=== PATIENT | female | born 1955 | race Caucasian/White ===

== ENCOUNTER 2017-02-17 02:48 | Emergency (ER) | payer OTHER ==
--- NOTE | 2017-02-17 05:32 | ED NURSING NOTES ---
Clinical Report - Nurses [facility] [address] [place] [address] 02/17/2017 2:48 Patient: ALEX CALZADA TRIAGE Triage time 02:50. Acuity: LEVEL 3. Chief Complaint: (ETOH/medical eval). SD COMA SCORE: [place] Coma Scale: 14- eyes open spontaneously (4); best verbal response- disoriented (4); best motor response- obeys commands (6). --02:58 Renato Rueda R.N. 02:50 02/17/17. BP: 137/82. HR: 82. RR: 18. O2 saturation: 96% on room air. Temp: 97.6 F (axillary). Pain level now: 0/10. Additional comments: denies pain. --02:58 Renato Rueda R.N. Weight: 81.6 kg estimated. Height/Length: 66 inches Estimated. BMI: 29. --02:50 Renato Rueda R.N. Medications Unable to Obtain. --05:40 Renato Rueda R.N. Allergies Unable to Obtain. --05:40 Renato Rueda R.N. History Arrived by EMS. Historian: EMS. Unaccompanied. This started today. ( patient smells of alcohol and appears intoxicated. Patient is uncooperative and fights having her vital signs taken. medical scientific officer is present with patient. EMS states that the daughter is on the way. Patient does not answer my assessment questions. she is awake.). PAST MEDICAL HX: Unknown. SOCIAL HX: Alcohol use. --02:58 Renato Rueda R.N. Interventions ID band on patient. --02:58 Renato Rueda R.N. PHYSICAL ASSESSMENT RESPIRATORY: Respirations not labored. Chest nontender. Breath sounds within normal limits. CVS: Capillary refill less than 2 seconds. SKIN: Skin is warm and dry. Normal skin turgor. --02:59 Renato Rueda R.N. ( monitor and storage bin tender and pulse oximetry applied to patient, patient immediately removed monitoring leads and pulseoxemtry.). --03:57 Renato Rueda R.N. ( patient currently laying in bed, daughter of patient at bedside.). --04:13 Renato Rueda R.N. ( Patient allowed me to place the playground monitor on her, she is calm and awake, but is pulling at the wires). --04:24 Renato Rueda R.N. ( patient is normal sinus on monitor.). --04:24 Renato Rueda R.N. 05:16 02/17/17. BP: 122/74. HR: 74 (regular and normal rate). RR: 13. O2 saturation: 96% on room air. Additional comments: nsr on monitor. --05:17 Renato Rueda R.N. 05:10. ( Patient's Daughter, Sarah Beth, states that she wants to go home, the patient is oriented to time and place and situation and states that she wants to leave. I notified Dr. Mix.). --05:25 Renato Rueda R.N. 05:15. ( Dr. Mix is currently at the bedside with the patient and her daughter.). --05:26 Renato Rueda R.N. ( patient is removing her monitoring equipment again.). --05:26 Renato Rueda R.N. 05:27 02/17/17. BP: 122/74. HR: 78. --05:27 Renato Rueda R.N. NURSING PROGRESS NOTES Patient gowned. Head of bed elevated. Two patient identifiers checked. Call light placed in reach. Side rails up x 2. Bed placed in lowest position. Brakes of bed on. Patient ready for evaluation- chart flagged. ( police handcuffed patient to the stretcher on right wrist). Patient waiting for evaluation. --03:00 Renato Rueda R.N. ( Adult daughter of patient arrives to ER.). --03:11 Renato Rueda R.N. ( Patient's daughter stats that she does not know how much the patient had to drink tonight, but states that she had "a couple coffee nudges"). --03:13 Renato Rueda R.N. 03:48 02/17/2017 Site #1 started via IV in the left antecubital space with an 20g angiocath; one attempt. Blood drawn: rainbow set. Labeled in the presence of the patient and sent to the lab. Saline lock flushed with saline. --03:58 Renato Rueda R.N. 04:20 02/17/17. BP: 117/68 taken while sitting. HR: 78 (regular and normal rate). RR: 21 (unlabored). O2 saturation: 96% on room air. --04:22 Renato Rueda R.N. DISPOSITION / DISCHARGE 05:37 02/17/17. RR: 18. O2 saturation: 95% on room air. --05:37 Renato Rueda R.N. 05:27 02/17/17. BP: 122/74. HR: 78. --05:37 Renato Rueda R.N. 05:37 02/17/2017 Site #1 removed upon discharge. Manual pressure and bandaid applied. --05:37 Renato Rueda R.N. Condition at departure: stable. Learning barriers present. Teaching performed with the patient and family. Discharge instructions provided and reviewed with the family. Reviewed warnings. Reviewed referrals for followup. Patient and family verbalized understanding. Written instructions provided in Mauritian. The patient was discharged home and accompanied by family and daughter "Sarah Beth". She left the Emergency Department ambulatory and via private vehicle. Family member driving. --05:38 Renato Rueda R.N. Locked/Released at 02/17/2017 5:41 by Renato Rueda R.N.
--- NOTE | 2017-02-17 05:32 | ED CLINICAL REPORT ---
Clinical Report - Physicians/Mid Levels [facility] [address] [place] [address] 02/17/2017 2:48 Patient: ALEX CALZADA Time Seen: 03:29 Feb 17 2017. Arrived- By ambulance. Historian- patient and EMS personnel. CPT: ER phys charges level 5 (#[id number]). HISTORY OF PRESENT ILLNESS Chief Complaint: Intoxicated. Brought in by police for DUI. ( [place] and admits to drinking too much alcohol.). This started today and is still present. At its maximum, severity described as moderate. When seen in the E.D., severity described as moderate. Modifying factors. Not worsened by anything. Not relieved by anything. The patient has had fatigue. Similar symptoms previously: None. Recent medical care: Not recently seen/assessed. REVIEW OF SYSTEMS No fever, sore throat, sinus drainage, cough or difficulty breathing. No chest pain, abdominal pain, nausea, vomiting or diarrhea. No chills, difficulty with urination or skin rash. All systems otherwise negative, except as recorded above. PAST HISTORY See nurses notes. Medications: Unable to Obtain. Allergies: Unable to Obtain. SOCIAL HISTORY Alcohol use. ADDITIONAL NOTES The nursing notes have been reviewed. PHYSICAL EXAM Vital Signs: 02/17/2017 02:50 BP: 137/82. HR: 82. RR: 18. O2 saturation: 96%. Temp: 97.6 F. Pain level now: 0/10. Appearance: No acute distress. Lethargic. Eyes: Pupils equal, round and reactive to light. Eyes normal inspection. Moderate horizontal nystagmus when looking laterally. ENT: Pharynx normal. Neck: Normal inspection. CVS: Normal heart rate and rhythm. Heart sounds normal. Pulses normal. Respiratory: No respiratory distress. Breath sounds normal. Chest nontender. Abdomen: Soft and nontender. Back: Normal inspection. Skin: Skin warm. Normal skin color. No rash. Extremities: Extremities exhibit normal ROM. No lower extremity edema. Neuro: Altered mental status. The patient is disoriented. Dysarthria. Cranial nerves II through XII intact and normal (as tested). Finger-nose test abnormal. No motor deficit and deficit. Moves all extremities. No sensory deficit and deficit. Reflexes normal. LABS, X-RAYS, AND EKG Laboratory Tests: CBC w Diff: (KACI: 02/17/2017 03:00) ( [facility] 02/17/2017 03:20) Final results Test Result Flag Units (Reference) WHITE BLOOD COUNT 9.4 K/uL (4.5-11.5) RED BLOOD COUNT 4.47 M/uL (4.00-5.20) HEMOGLOBIN 13.8 gm/dL (12.0-16.0) HEMATOCRIT 41.0 % (36.0-46.0) MEAN CELL VOLUME 92 fL (80-100) MEAN CORPUSCULAR HGB 31 pg (26-34) MEAN CORPUSCULAR HGB CONC 34 g/dL (31-37) RED CELL DISTRIBUTION WIDTH 13.2 % (11.6-14.8) PLATELET COUNT 348 K/uL (150-400) NEUTROPHIL % 41.0 L % (50-75) LYMPH % 43.6 H % (25-40) MONO % 7.5 % (3-14) EOSINOPHIL % 7.2 H % (0-4) BASOPHIL % 0.7 % (0-2) TSH: (KACI: 02/17/2017 03:00) ( [facility] 02/17/2017 04:50) Final results Test Result Flag Units (Reference) THYROID STIMULATING HORMONE 2.652 uIU/mL (0.30-3.74) CPK: (KACI: 02/17/2017 03:00) ( [facility] 02/17/2017 04:50) Final results Test Result Flag Units (Reference) CPK 62 U/L (24-260) Ethyl Alcohol: (KACI: 02/17/2017 03:00) ( [facility] 02/17/2017 03:29) Final results Test Result Flag Units (Reference) ETHYL ALCOHOL 349 H mg/dL (3-10) CMP: (KACI: 02/17/2017 03:00) ( MsgRcvd 02/17/2017 03:31) Final results Test Result Flag Units (Reference) GLUCOSE 120 H mg/dL (70-110) BUN 14 mg/dL (7-18) CREATININE 0.8 mg/dL (0.6-1.3) Estimated GFR >60 mL/min Estimated GFR- >60 mL/min Note: Persistent reduction over 3 months in eGFR<60 mL/min/1.73 m2 defines CKD. Patients with eGFR values>=60 mL/min/1.73 m2 may also have CKD if evidence ofpersistent proteinuria. Additional information may be foundat www.kidney.org. SODIUM 137 mmol/L (136-145) POTASSIUM 3.7 mmol/L (3.5-5.1) CHLORIDE 98 mmol/L (98-107) CARBON DIOXIDE 25 mmol/L (21-32) CALCIUM 8.7 mg/dL (8.5-10.1) TOTAL PROTEIN 7.5 g/dL (6.4-8.2) ALBUMIN 3.9 g/dL (3.3-5.0) BILIRUBIN, TOTAL 0.3 mg/dL (0.0-1.0) ALKALINE PHOSPHATASE 78 U/L (46-116) AST (SGOT) 31 U/L (15-37) ALT (SGPT) 51 U/L (12-78) . PROGRESS AND PROCEDURES Course of Care: IV NS Pt observed and became alert several hours later. Daughter is here and will take her home. Patient is stable. Symptoms much better. Patient/family counseled. Disposition: Discharged. Condition: stable and improved. CLINICAL IMPRESSION Alcohol intoxication. INSTRUCTIONS No alcohol. (Stay with daughter for 24 hours.). Warnings: Further evaluation is necessary. GENERAL WARNINGS: Return or contact your physician immediately if your condition worsens or changes unexpectedly, if not improving as expected, or if other problems arise. Follow-up: Follow up with your doctor in one week. Call for an appointment. Understanding of the discharge instructions verbalized by patient and family. Discharge instructions reviewed (Daughter). (Electronically signed by Marcos Mix MD 02/21/2017 0:33)
--- NOTE | 2017-02-17 05:32 | ED ORDER SUMMARY ---
..... Patient: ALEX CALZADA OrderSheet [facility] VisitID: [id number] [address] [place] [address] 61y, F Registration Date/Time: 02/17/2017 ORDER SHEET Weight: 81.6 kg (estimated) Allergies: Unable to Obtain GENERAL ORDERS: CBC w Diff Urgent (03:10 02/17/2017 Kelvin R.N. verbal order read back to Narendra ORR) (3:12 JRomanelli R.N.) (3:12 DDavis R.N.) CMP Urgent (03:10 02/17/2017 Rameshelli R.N. verbal order read back to Narendra ORR) (3:12 JRomanelli R.N.) (3:12 DDavis R.N.) Ethyl Alcohol Urgent (03:11 02/17/2017 Rameshelli R.N. verbal order read back to Narendra ORR) (3:12 JRomanelli R.N.) (3:12 DDavis R.N.) Dishwasher Busser (Continuous) (03:40 02/17/2017 Narendra ORR) (3:58 DDavis R.N.) Urine Drug Screen Urgent (03:40 02/17/2017 Narendra ORR) (Ack 3:42 CHategekimana) (4:11 DDavis R.N.) Pulse oximeter (03:40 02/17/2017 Narendra ORR) (3:51 DDavis R.N.) CPK Urgent (03:55 02/17/2017 Narendra ORR) (3:58 DDavis R.N.) TSH Urgent (03:55 02/17/2017 Narendra ORR) (3:58 DDavis R.N.) MEDICATION ORDERS: IV FLUIDS: IV Saline Lock (03:41 02/17/2017 Narendra ORR) (3:58 DDavis R.N.) ORDER SHEET NOTES: [Electronically signed by Renato Rueda R.N. (05:41 02/17/2017)] [Electronically signed by Marcos Mix MD (00:33 02/21/2017)] [Electronically locked/signed by Renato Rueda R.N. (05:41 02/17/2017)]
--- NOTE | 2017-02-17 05:32 | ED CLINICAL REPORT ---
Clinical Report - Physicians/Mid Levels [facility] [address] [place] [address] 02/17/2017 2:48 Patient: ALEX CALZADA Time Seen: 03:29 Feb 17 2017. Arrived- By ambulance. Historian- patient and EMS personnel. CPT: ER phys charges level 5 (#[id number]). HISTORY OF PRESENT ILLNESS Chief Complaint: Intoxicated. Brought in by police for DUI. ( [place] and admits to drinking too much alcohol.). This started today and is still present. At its maximum, severity described as moderate. When seen in the E.D., severity described as moderate. Modifying factors. Not worsened by anything. Not relieved by anything. The patient has had fatigue. Similar symptoms previously: None. Recent medical care: Not recently seen/assessed. REVIEW OF SYSTEMS No fever, sore throat, sinus drainage, cough or difficulty breathing. No chest pain, abdominal pain, nausea, vomiting or diarrhea. No chills, difficulty with urination or skin rash. All systems otherwise negative, except as recorded above. PAST HISTORY See nurses notes. Medications: Unable to Obtain. Allergies: Unable to Obtain. SOCIAL HISTORY Alcohol use. ADDITIONAL NOTES The nursing notes have been reviewed. PHYSICAL EXAM Vital Signs: 02/17/2017 02:50 BP: 137/82. HR: 82. RR: 18. O2 saturation: 96%. Temp: 97.6 F. Pain level now: 0/10. Appearance: No acute distress. Lethargic. Eyes: Pupils equal, round and reactive to light. Eyes normal inspection. Moderate horizontal nystagmus when looking laterally. ENT: Pharynx normal. Neck: Normal inspection. CVS: Normal heart rate and rhythm. Heart sounds normal. Pulses normal. Respiratory: No respiratory distress. Breath sounds normal. Chest nontender. Abdomen: Soft and nontender. Back: Normal inspection. Skin: Skin warm. Normal skin color. No rash. Extremities: Extremities exhibit normal ROM. No lower extremity edema. Neuro: Altered mental status. The patient is disoriented. Dysarthria. Cranial nerves II through XII intact and normal (as tested). Finger-nose test abnormal. No motor deficit and deficit. Moves all extremities. No sensory deficit and deficit. Reflexes normal. LABS, X-RAYS, AND EKG Laboratory Tests: CBC w Diff: (KACI: 02/17/2017 03:00) ( [facility] 02/17/2017 03:20) Final results Test Result Flag Units (Reference) WHITE BLOOD COUNT 9.4 K/uL (4.5-11.5) RED BLOOD COUNT 4.47 M/uL (4.00-5.20) HEMOGLOBIN 13.8 gm/dL (12.0-16.0) HEMATOCRIT 41.0 % (36.0-46.0) MEAN CELL VOLUME 92 fL (80-100) MEAN CORPUSCULAR HGB 31 pg (26-34) MEAN CORPUSCULAR HGB CONC 34 g/dL (31-37) RED CELL DISTRIBUTION WIDTH 13.2 % (11.6-14.8) PLATELET COUNT 348 K/uL (150-400) NEUTROPHIL % 41.0 L % (50-75) LYMPH % 43.6 H % (25-40) MONO % 7.5 % (3-14) EOSINOPHIL % 7.2 H % (0-4) BASOPHIL % 0.7 % (0-2) TSH: (KACI: 02/17/2017 03:00) ( [facility] 02/17/2017 04:50) Final results Test Result Flag Units (Reference) THYROID STIMULATING HORMONE 2.652 uIU/mL (0.30-3.74) CPK: (KACI: 02/17/2017 03:00) ( [facility] 02/17/2017 04:50) Final results Test Result Flag Units (Reference) CPK 62 U/L (24-260) Ethyl Alcohol: (KACI: 02/17/2017 03:00) ( [facility] 02/17/2017 03:29) Final results Test Result Flag Units (Reference) ETHYL ALCOHOL 349 H mg/dL (3-10) CMP: (KACI: 02/17/2017 03:00) ( MsgRcvd 02/17/2017 03:31) Final results Test Result Flag Units (Reference) GLUCOSE 120 H mg/dL (70-110) BUN 14 mg/dL (7-18) CREATININE 0.8 mg/dL (0.6-1.3) Estimated GFR >60 mL/min Estimated GFR- >60 mL/min Note: Persistent reduction over 3 months in eGFR<60 mL/min/1.73 m2 defines CKD. Patients with eGFR values>=60 mL/min/1.73 m2 may also have CKD if evidence ofpersistent proteinuria. Additional information may be foundat www.kidney.org. SODIUM 137 mmol/L (136-145) POTASSIUM 3.7 mmol/L (3.5-5.1) CHLORIDE 98 mmol/L (98-107) CARBON DIOXIDE 25 mmol/L (21-32) CALCIUM 8.7 mg/dL (8.5-10.1) TOTAL PROTEIN 7.5 g/dL (6.4-8.2) ALBUMIN 3.9 g/dL (3.3-5.0) BILIRUBIN, TOTAL 0.3 mg/dL (0.0-1.0) ALKALINE PHOSPHATASE 78 U/L (46-116) AST (SGOT) 31 U/L (15-37) ALT (SGPT) 51 U/L (12-78) . PROGRESS AND PROCEDURES Course of Care: IV NS Pt observed and became alert several hours later. Daughter is here and will take her home. Patient is stable. Symptoms much better. Patient/family counseled. Disposition: Discharged. Condition: stable and improved. CLINICAL IMPRESSION Alcohol intoxication. INSTRUCTIONS No alcohol. (Stay with daughter for 24 hours.). Warnings: Further evaluation is necessary. GENERAL WARNINGS: Return or contact your physician immediately if your condition worsens or changes unexpectedly, if not improving as expected, or if other problems arise. Follow-up: Follow up with your doctor in one week. Call for an appointment. Understanding of the discharge instructions verbalized by patient and family. Discharge instructions reviewed (Daughter). (Electronically signed by Marcos Mix MD 02/21/2017 0:33)
--- NOTE | 2017-02-17 05:32 | ED ORDER SUMMARY ---
..... Patient: ALEX CALZADA OrderSheet [facility] VisitID: [id number] [address] [place] [address] 61y, F Registration Date/Time: 02/17/2017 ORDER SHEET Weight: 81.6 kg (estimated) Allergies: Unable to Obtain GENERAL ORDERS: CBC w Diff Urgent (03:10 02/17/2017 Kelvin R.N. verbal order read back to Narendra ORR) (3:12 JRomanelli R.N.) (3:12 DDavis R.N.) CMP Urgent (03:10 02/17/2017 Rameshelli R.N. verbal order read back to Narendra ORR) (3:12 JRomanelli R.N.) (3:12 DDavis R.N.) Ethyl Alcohol Urgent (03:11 02/17/2017 Rameshelli R.N. verbal order read back to Narendra ORR) (3:12 JRomanelli R.N.) (3:12 DDavis R.N.) Channel Opener Outsoles (Continuous) (03:40 02/17/2017 Narendra ORR) (3:58 DDavis R.N.) Urine Drug Screen Urgent (03:40 02/17/2017 Narendra ORR) (Ack 3:42 CHategekimana) (4:11 DDavis R.N.) Pulse oximeter (03:40 02/17/2017 Narendra ORR) (3:51 DDavis R.N.) CPK Urgent (03:55 02/17/2017 Narendra ORR) (3:58 DDavis R.N.) TSH Urgent (03:55 02/17/2017 Narendra ORR) (3:58 DDavis R.N.) MEDICATION ORDERS: IV FLUIDS: IV Saline Lock (03:41 02/17/2017 Narendra ORR) (3:58 DDavis R.N.) ORDER SHEET NOTES: [Electronically signed by Renato Rueda R.N. (05:41 02/17/2017)] [Electronically signed by Marcos Mix MD (00:33 02/21/2017)] [Electronically locked/signed by Renato Rueda R.N. (05:41 02/17/2017)]
--- NOTE | 2017-02-17 05:32 | ED NURSING NOTES ---
Clinical Report - Nurses [facility] [address] [place] [address] 02/17/2017 2:48 Patient: ALEX CALZADA TRIAGE Triage time 02:50. Acuity: LEVEL 3. Chief Complaint: (ETOH/medical eval). SD COMA SCORE: [place] Coma Scale: 14- eyes open spontaneously (4); best verbal response- disoriented (4); best motor response- obeys commands (6). --02:58 Renato Rueda R.N. 02:50 02/17/17. BP: 137/82. HR: 82. RR: 18. O2 saturation: 96% on room air. Temp: 97.6 F (axillary). Pain level now: 0/10. Additional comments: denies pain. --02:58 Renato Rueda R.N. Weight: 81.6 kg estimated. Height/Length: 66 inches Estimated. BMI: 29. --02:50 Renato Rueda R.N. Medications Unable to Obtain. --05:40 Renato Rueda R.N. Allergies Unable to Obtain. --05:40 Renato Rueda R.N. History Arrived by EMS. Historian: EMS. Unaccompanied. This started today. ( patient smells of alcohol and appears intoxicated. Patient is uncooperative and fights having her vital signs taken. vessel traffic officer is present with patient. EMS states that the daughter is on the way. Patient does not answer my assessment questions. she is awake.). PAST MEDICAL HX: Unknown. SOCIAL HX: Alcohol use. --02:58 Renato Rueda R.N. Interventions ID band on patient. --02:58 Renato Rueda R.N. PHYSICAL ASSESSMENT RESPIRATORY: Respirations not labored. Chest nontender. Breath sounds within normal limits. CVS: Capillary refill less than 2 seconds. SKIN: Skin is warm and dry. Normal skin turgor. --02:59 Renato Rueda R.N. ( senior android developer and pulse oximetry applied to patient, patient immediately removed monitoring leads and pulseoxemtry.). --03:57 Renato Rueda R.N. ( patient currently laying in bed, daughter of patient at bedside.). --04:13 Renato Rueda R.N. ( Patient allowed me to place the dietary internship on her, she is calm and awake, but is pulling at the wires). --04:24 Renato Rueda R.N. ( patient is normal sinus on monitor.). --04:24 Renato Rueda R.N. 05:16 02/17/17. BP: 122/74. HR: 74 (regular and normal rate). RR: 13. O2 saturation: 96% on room air. Additional comments: nsr on monitor. --05:17 Renato Rueda R.N. 05:10. ( Patient's Daughter, Sarah Beth, states that she wants to go home, the patient is oriented to time and place and situation and states that she wants to leave. I notified Dr. Mix.). --05:25 Renato Rueda R.N. 05:15. ( Dr. Mix is currently at the bedside with the patient and her daughter.). --05:26 Renato Rueda R.N. ( patient is removing her monitoring equipment again.). --05:26 Renato Rueda R.N. 05:27 02/17/17. BP: 122/74. HR: 78. --05:27 Renato Rueda R.N. NURSING PROGRESS NOTES Patient gowned. Head of bed elevated. Two patient identifiers checked. Call light placed in reach. Side rails up x 2. Bed placed in lowest position. Brakes of bed on. Patient ready for evaluation- chart flagged. ( police handcuffed patient to the stretcher on right wrist). Patient waiting for evaluation. --03:00 Renato Rueda R.N. ( Adult daughter of patient arrives to ER.). --03:11 Renato Rueda R.N. ( Patient's daughter stats that she does not know how much the patient had to drink tonight, but states that she had "a couple coffee nudges"). --03:13 Renato Rueda R.N. 03:48 02/17/2017 Site #1 started via IV in the left antecubital space with an 20g angiocath; one attempt. Blood drawn: rainbow set. Labeled in the presence of the patient and sent to the lab. Saline lock flushed with saline. --03:58 Renato Rueda R.N. 04:20 02/17/17. BP: 117/68 taken while sitting. HR: 78 (regular and normal rate). RR: 21 (unlabored). O2 saturation: 96% on room air. --04:22 Renato Rueda R.N. DISPOSITION / DISCHARGE 05:37 02/17/17. RR: 18. O2 saturation: 95% on room air. --05:37 Renato Rueda R.N. 05:27 02/17/17. BP: 122/74. HR: 78. --05:37 Renato Rueda R.N. 05:37 02/17/2017 Site #1 removed upon discharge. Manual pressure and bandaid applied. --05:37 Renato Rueda R.N. Condition at departure: stable. Learning barriers present. Teaching performed with the patient and family. Discharge instructions provided and reviewed with the family. Reviewed warnings. Reviewed referrals for followup. Patient and family verbalized understanding. Written instructions provided in Mongolian. The patient was discharged home and accompanied by family and daughter "Sarah Beth". She left the Emergency Department ambulatory and via private vehicle. Family member driving. --05:38 Renato Rueda R.N. Locked/Released at 02/17/2017 5:41 by Renato Rueda R.N.
--- NOTE | 2017-02-21 00:33 | ED DISCHARGE INSTRUCTIONS ---
Patient: ALEX CALZADA General Instructions [facility] VisitID: [id number] [address] [place] [address] 61y, F Registration Date/Time: 02/17/2017 Alcohol intoxication. INSTRUCTIONS No alcohol. (Stay with daughter for 24 hours.). Warnings: Further evaluation is necessary. GENERAL WARNINGS: Return or contact your physician immediately if your condition worsens or changes unexpectedly, if not improving as expected, or if other problems arise. Follow-up: Follow up with your doctor in one week. Call for an appointment. Understanding of the discharge instructions verbalized by patient and family. Discharge instructions reviewed (Daughter). (Electronically signed by Marcos Mix MD 02/21/2017 0:33)
--- NOTE | 2017-02-21 00:33 | ED MED RECONCILIATION SUMMARY ---
Patient: ALEX CALZADA Medication Reconciliation Report [facility] VisitID: [id number] [address] [place] [address] 61y, F Registration Date/Time: 02/17/2017 Weight: 81.6 kg Height/Length: 66 in. BMI: 29.0 ALLERGIES: Unable to Obtain The patient's Home Medications are listed below: Unable to obtain. The source(s) of the original Home Medication information: Not obtained. The following Medications were given to the patient in the Emergency Department: None. The following Medications were prescribed to the patient: None.
--- NOTE | 2017-02-21 00:33 | ED MAR SUMMARY ---
..... Medication Administration Record [facility] [address] [place], [place] [id number] Patient: ALEX CALZADA Visit ID: [id number] 61y, F Weight: 81.6 kg Height/Length: 66 in BMI: 29 ALLERGIES: Unable to Obtain
--- NOTE | 2017-02-21 00:33 | ED MED RECONCILIATION SUMMARY ---
Patient: ALEX CALZADA Medication Reconciliation Report [facility] VisitID: [id number] [address] [place] [place] [address] 61y, F Registration Date/Time: 02/17/2017 Weight: 81.6 kg Height/Length: 66 in. BMI: 29.0 ALLERGIES: Unable to Obtain The patient's Home Medications are listed below: Unable to obtain. The source(s) of the original Home Medication information: Not obtained. The following Medications were given to the patient in the Emergency Department: None. The following Medications were prescribed to the patient: None.
--- NOTE | 2017-02-21 00:33 | ED DISCHARGE INSTRUCTIONS ---
Patient: ALEX CALZADA General Instructions [facility] VisitID: [id number] [address] [place] [address] 61y, F Registration Date/Time: 02/17/2017 Alcohol intoxication. INSTRUCTIONS No alcohol. (Stay with daughter for 24 hours.). Warnings: Further evaluation is necessary. GENERAL WARNINGS: Return or contact your physician immediately if your condition worsens or changes unexpectedly, if not improving as expected, or if other problems arise. Follow-up: Follow up with your doctor in one week. Call for an appointment. Understanding of the discharge instructions verbalized by patient and family. Discharge instructions reviewed (Daughter). (Electronically signed by Marcos Mix MD 02/21/2017 0:33)
--- NOTE | 2017-02-21 00:33 | ED MAR SUMMARY ---
..... Medication Administration Record [facility] [address] [place], [place] [id number] Patient: ALEX CALZADA Visit ID: [id number] 61y, F Weight: 81.6 kg Height/Length: 66 in BMI: 29 ALLERGIES: Unable to Obtain
== END 2017-02-17 05:40 | disposition home or self-care (01) ==
LOC: ED SRH 02:48
DX: F10.129 Alcohol abuse with intoxication, unspecified (principal)
CPT/HCPCS: 90100; 92010; 92610; 93140; 95059